=== PATIENT | female | born 1965 | race Caucasian/White ===

== ENCOUNTER → 2023-09-28 07:25 | Outpatient (REF) | payer OTHER, SELFPAY | LOC: HWWDC 07:25 | PROVIDERS: ATTENDING PHYSICIAN Nurse Practitioner Family | DX: Z12.31 Encounter for screening mammogram for malignant neoplasm of breast (principal) | CPT/HCPCS: 77063; 77067 ==

== ENCOUNTER → 2023-10-27 06:26 | Day surgery (SDC) | payer OTHER, SELFPAY | LOC: GI 06:26 | PROVIDERS: ATTENDING PHYSICIAN Internal Medicine Gastroenterology | DX: Z12.11 Encounter for screening for malignant neoplasm of colon (principal); K57.30 Diverticulosis of large intestine without perforation or abscess without bleeding; K64.8 Other hemorrhoids | CPT/HCPCS: G0121 ==

== ENCOUNTER → 2024-11-10 13:57 | Outpatient (REF) | payer SELFPAY | LOC: HWRAD 13:57 | PROVIDERS: ATTENDING PHYSICIAN Nurse Practitioner Family | DX: E78.00 Pure hypercholesterolemia, unspecified (principal) | CPT/HCPCS: 75571 ==